=== PATIENT | male | born 1960 | race Caucasian/White ===

== ENCOUNTER 2021-04-05 11:03 | Day surgery (SDC) | payer MEDICAID ==
[~2021-04-05] VITALS: Ht 177.8 cm; Wt 154.5 kg
[~2021-04-05 11:03] MED LIST: SODIUM CHLORIDE 0.9% 1,000 ML ONE
[2021-04-05] MEDS ORDERED: PROPOFOL 1% 20 ML VIAL IVP ONE (11:04)
[2021-04-05 11:58] LABS: COVID AG,FIA SOURCE NASOPHARYNGEAL
[2021-04-05] MEDS ORDERED: SODIUM CHLORIDE 0.9% 1,000 ML IV ONE (12:00)
[2021-04-05] MEDS ORDERED: METF-960 PO (13:24)
[2021-04-05 14:12] LABS: GLUCOMETER DEV NAME(LOC) SDS.; GLUCOSE,POINT OF CARE 110 MG/DL (70-110)
== END 2021-04-05 14:40 | disposition home or self-care (01) ==
LOC: SURGERY 11:03
PROVIDERS: ATTEND Internal Medicine Gastroenterology
DX: R19.5 Other fecal abnormalities (principal); D12.5 Benign neoplasm of sigmoid colon; K64.8 Other hemorrhoids; K29.50 Unspecified chronic gastritis without bleeding; K74.60 Unspecified cirrhosis of liver; F17.210 Nicotine dependence, cigarettes, uncomplicated; J44.9 Chronic obstructive pulmonary disease, unspecified; E66.9 Obesity, unspecified; E78.00 Pure hypercholesterolemia, unspecified; Z86.010 Personal history of colon polyps; Z79.899 Other long term (current) drug therapy; F31.9 Bipolar disorder, unspecified; I10 Essential (primary) hypertension; Z98.890 Other specified postprocedural states; Z72.89 Other problems related to lifestyle
CPT/HCPCS: 45385; 43239; 82962; 87426; 88305; 88312; 88313; C1769; C9803; J2704; J7030